=== PATIENT | female | born 1945 | race Two or more races ===

== ENCOUNTER → 2017-05-12 | Emergency (ER) | payer MEDICARE, OTHER ==
[~2017-05-12] MED LIST: ASPIRIN 81 MG CHEWABLE TABLETS ONE; ASPIRIN 81 MG CHEWABLE TABLETS PO ONE; ASPIRIN COATED 81 MG TABLET.EC PO SCH; ATORVASTATIN CA 80 MG TABLET (FP) PO SCH; CLOPIDOGREL BISULFATE 300 MG TABLET ONE; CLOPIDOGREL BISULFATE 300 MG TABLET PO ONE; CLOPIDOGREL BISULFATE 75 MG TABLET (FP) PO SCH; FUROSEMIDE 40 MG/4 ML INJECTABLE VIAL IVPUSH ONE; FUROSEMIDE 40 MG/4 ML INJECTABLE VIAL ONE; HEPARIN INFUSION - 25,000 UNITS/500 ML INFUS.BAG IVPB ONE; HEPARIN NA (PORCINE) 5,000 UNITS/ML 1ML VIAL IVPUSH ONE; HEPARIN NA (PORCINE) 5,000 UNITS/ML 1ML VIAL IVPUSH PRN; HEPARIN NA (PORCINE) 5,000 UNITS/ML 1ML VIAL ONE; HEPARIN SOD,PORK IN 0.45% NACL 25,000 UNIT/500 ML INFUS.BAG IVPB SCH; METOPROLOL TARTRATE 25 MG TABLET (FP) ONE; METOPROLOL TARTRATE 25 MG TABLET (FP) PO SCH; MORPHINE SULFATE 10 MG/1 ML *VIAL ONE; NITROGLYCERIN SUBLINGUAL 1/150 0.4 MG TAB SL ONE; SODIUM CHLORIDE 0.9% 500 ML INFUS.BAG IV ONE; VASOPRESSIN 20 UNITS/ML VIAL IV ONE; VASOPRESSIN 50 UNITS in SODIUM CHLORIDE 97.5 ML IVPB SCH; morphine CARPU-JECT 2 MG/1 ML DISP.SYRIN IVPUSH ONE
[2017-05-12 13:50] VITALS: BMI 23.6
--- NOTE | 2017-05-12 13:52 | PDOC ---
History of Present Illness - General History Source: Patient Exam Limitations: No Limitations - History of Present Illness Initial Comments: 05/12/17 14:00 The patient is a 71 year old female with past medical history of hypertension and diabetes who presents to the ED with complaints of left sided chest pain that began this morning at 4 am. The patient complains of a constant, sharp pain in her left chest that radiates up to her left jaw and left side of her head. The pain is not worsened by walking or deep inspiration. She denies any alleviating factors. She also reports associated nausea and vomiting that began at the onset of her pain this morning as well. The patient reports taking aspirin every other day but denies taking aspirin this morning. She denies any cardiac history or any catheterizations or stress tests in the past. She denies any associated shortness of breath, palpitations, or loss of consciousness. She denies any recent illness, fevers, or chills. PCP: Dr. Dominick Huddleston <Sepideh Dinh - Last Filed: 05/12/17 15:06> <Sabiha Barrientos - Last Filed: 05/12/17 17:23> - General Chief Complaint: Chest Pain Stated Complaint: CHEST PAIN Time Seen by Provider: 05/12/17 13:52 Past History <Sepideh Dinh - Last Filed: 05/12/17 15:06> - Past Medical History Diabetes: Yes HTN: Yes Hypercholesterolemia: Yes - Suicide/Smoking/Psychosocial Hx Smoking Status: No Smoking History: Never smoked Number of Cigarettes Smoked Daily: 0 <Sabiha Barrientos - Last Filed: 05/12/17 17:23> - Past Medical History Allergies/Adverse Reactions: Allergies Allergy/AdvReac Type Severity Reaction Status Date / Time No Known Allergies Allergy Verified 05/12/17 13:48 Home Medications: Ambulatory Orders Aspirin [ASA -] 81 mg PO DAILY 05/12/17 Dulaglutide [Trulicity] 1.5 mg SQ WEEKLY 05/12/17 Insulin (Levemir) [Levemir Vial] 50 unit SQ DAILY 05/12/17 Review of Systems - Review of Systems Able to Perform ROS?: Yes Comments:: 05/12/17 14:01 GENERAL/CONSTITUTIONAL: No fever or chills. No weakness. HEAD, EYES, EARS, NOSE AND THROAT: No change in vision. No ear pain or discharge. No sore throat. CARDIOVASCULAR: Present: chest pain No shortness of breath. RESPIRATORY: No cough, wheezing, or hemoptysis. GASTROINTESTINAL: Present: nausea, vomiting No diarrhea or constipation. GENITOURINARY: No dysuria, frequency, or change in urination. MUSCULOSKELETAL: No joint or muscle swelling or pain. No neck or back pain. SKIN: No rash NEUROLOGIC: No vertigo, loss of consciousness, or change in strength/sensation. ENDOCRINE: No increased thirst. No abnormal weight change. HEMATOLOGIC/LYMPHATIC: No anemia, easy bleeding, or history of blood clots. ALLERGIC/IMMUNOLOGIC: No hives or skin allergy. All Other Systems: Reviewed and Negative <Sepideh Dinh - Last Filed: 05/12/17 15:06> *Physical Exam - Vital Signs Last Vital Signs Temp Pulse Resp BP Pulse Ox 97.3 F L 96 H 17 110/59 95 05/12/17 13:48 05/12/17 13:48 05/12/17 13:48 05/12/17 13:48 05/12/17 13:48 - Physical Exam Comments: 05/12/17 14:02 GENERAL: Awake, alert, and fully oriented, in no acute distress HEAD: No signs of trauma EYES: PERRLA, EOMI, sclera anicteric, conjunctiva clear ENT: Auricles normal inspection, hearing grossly normal, nares patent, oropharynx clear without exudates. Moist mucosa NECK: Normal ROM, supple, no lymphadenopathy, JVD, or masses LUNGS: Breath sounds equal, clear to auscultation bilaterally. No wheezes, and no crackles HEART: Regular rate and rhythm, normal S1 and S2, no murmurs, rubs or gallops ABDOMEN: Soft, nontender, normoactive bowel sounds. No guarding, no rebound. No masses EXTREMITIES: Normal range of motion, no edema. No clubbing or cyanosis. No cords, erythema, or tenderness NEUROLOGICAL: Cranial nerves II through XII grossly intact. Normal speech, normal gait SKIN: Warm, Dry, normal turgor, no rashes or lesions noted. <Sepideh Dinh - Last Filed: 05/12/17 15:06> - Vital Signs Last Vital Signs Temp Pulse Resp BP Pulse Ox 97.3 F L 96 H 17 110/59 95 05/12/17 13:48 05/12/17 13:48 05/12/17 13:48 05/12/17 13:48 05/12/17 13:48 <Sabiha Barrientos - Last Filed: 05/12/17 17:23> ED Treatment Course - LABORATORY CBC & Chemistry Diagram: 05/12/17 13:50 05/12/17 13:50 <Sepideh Dinh - Last Filed: 05/12/17 15:06> - LABORATORY CBC & Chemistry Diagram: 05/12/17 13:50 05/12/17 13:50 <Sabiha Barrientos - Last Filed: 05/12/17 17:23> Medical Decision Making - Medical Decision Making 05/12/17 14:51 Phone call [address] to Dr. Pizarro, admitting physician for Dr. Huddleston. Awaiting call back 05/12/17 14:54 Phone call returned by Dr. Pizarro, case discussed. 05/12/17 15:06 Phone call placed to Dr. Dawson via answering service. Call was returned promptly and case was discussed. <Sepideh Dinh - Last Filed: 05/12/17 15:06> - Critical Care Time Total Critical Care Time (minutes): 30 Critical Care Statement: The care of this patient involved high complexity decision making to prevent further life threatening deterioration of the patient 's condition and/or to evaluate & treat vital organ system(s) failure or risk of failure. - Medical Decision Making 05/12/17 14:24 Pt presents to the ED complaining of chest pain that began at 4 am, accompanied by nausea and vomiting. Initial EKG had an ST depression in V2, with a tall R wave. No changes in V1, but concern remained for posterior stemi, so posterior EKG was obtained. THe posterior eKG shows no JOHANNE, and on the repeat EKG, the depression in v2 seems resolved. Concern for ischemia, although patient does not appear to have STEMI at this time. Case discussed with Dr. De Leon, who has examined the EKG and suggests nitrogylcerin. Will treat with gentle IV hydration ( SBP is 100) and nitro, as well as ASA. Dr. De Leon will see the patient. Will admit to medicine for ACS. 05/12/17 17:13 Pt made troponins of 20. Given nitroglycerin x [address] De Leon. SBP then decreased into the 80's. Given NS 1 L IV with initial improvement, but then patient began to be hypoxic and SBP decreased again into the 70s. Patient started on vasopressin IV with improvement in her blood pressure. Transfer team here to take the patient to [facility]. 05/12/17 17:19 <Sabiha Barrientos - Last Filed: 05/12/17 17:23> *DC/Admit/Observation/Transfer - Attestations Scribe Attestion: 05/12/17 14:02 Documentation prepared by Sepideh Dinh, acting as resident medical officer for Sabiha Barrienots MD. <Sepideh Dinh - Last Filed: 05/12/17 15:06> - Discharge Dispostion Admit: Yes - Transfer to Acute Care Facility Receiving Facility: [facility] Accepting Physician:: anoop <Sabiha Barrientos - Last Filed: 05/12/17 17:23> Diagnosis at time of Disposition: NSTEMI (non-ST elevated myocardial infarction) - Discharge Dispostion Disposition: TRANSFER ACUTE CARE/OTHER HOSP Condition at time of disposition: Stable
[2017-05-12 14:06] LABS: BASO % 0.5 % (0-2.0); EOS % 0.1 % (0-4.5); HEMATOCRIT 41.8 % (32.4-45.2); HEMOGLOBIN 13.9 GM/dL (10.7-15.3); MCH 29.7 pg (25.7-33.7); MCHC 33.3 g/dl (32.0-36.0); MEAN CELL VOLUME 89.2 fl (80-96); MEAN PLT VOLUME 9.2 fl (7.5-11.1); MONO % 3.1 % (3.8-10.2); NEUT % 87.3 % (42.8-82.8); PLATELET COUNT 164 K/MM3 (134-434); RBC 4.68 M/mm3 (3.60-5.2); RDW 13.2 % (11.6-15.6); WHITE BLOOD COUNT 10.6 K/mm3 (4.0-10.0)
--- NOTE | 2017-05-12 14:29 | CON.CARD ---
Consult Consult Specialty:: cardio Referred by:: ER (for guillejose de jesus) - History of Present Illness Chief Complaint: cp History of Present Illness: 71 yo female here with CP. started at 4-4:30 am, shortly after she had woken and finished using the bathroom. was severe shortly after onset of pain. remained 10 out of 10 intensity--came to ER. takes ASA 81 qod at home (for prior "minor stroke"). given 162mg aspirin in ER. pain subsided to 5 of 10 intensity where it remains. located in R pectoral region. also assctd R neck/jaw pain. no sob, diaph, LH. *NEVER HAD THIS PAIN BEFORE. PMH: HTN DM HPL TIA no cigs FH: son of fatal [place] in his 40s - Smoking History Smoking history: Never smoked Aproximately how many cigarettes per day: 0 Home Medications - Allergies Allergies/Adverse Reactions: Allergies Allergy/AdvReac Type Severity Reaction Status Date / Time No Known Allergies Allergy Verified 05/12/17 13:48 - Home Medications Home Medications: Ambulatory Orders Aspirin [ASA -] 81 mg PO DAILY 05/12/17 Dulaglutide [Trulicity] 1.5 mg SQ WEEKLY 05/12/17 Insulin (Levemir) [Levemir Vial] 50 unit SQ DAILY 05/12/17 Review of Systems - Review of Systems Constitutional: denies: Chills, Fever Eyes: denies: Eye Pain HENT: denies: Nasal Congestion Neck: denies: Stiffness Cardiovascular: denies: Palpitations Respiratory: denies: Orthopnea, PND Gastrointestinal: denies: Diarrhea, Rectal Bleeding Genitourinary: denies: Burning, Hematuria Musculoskeletal: denies: Muscle Pain Integumentary: denies: Rash Neurological: denies: Numbness, Seizure, Syncope Endocrine: denies: Excessive Sweating Hematology/Lymphatic: denies: Excessive Bleeding Vital Signs: Vital Signs Temperature 97.3 F L 05/12/17 13:48 Pulse Rate 96 H 05/12/17 13:48 Respiratory Rate 17 05/12/17 13:48 Blood Pressure 110/59 05/12/17 13:48 O2 Sat by Pulse Oximetry (%) 95 05/12/17 13:48 Constitutional: Yes: Well Nourished, No Distress Eyes: No: Sclera Icterus HENT: No: Nasal Congestion Neck: No: Decreased ROM Respiratory: Yes: CTA Bilaterally. No: Accessory Muscle Use Gastrointestinal: Yes: Normal Bowel Sounds. No: Distention, Hepatomegaly, Palpable Mass, Tenderness Cardiovascular: Yes: Regular Rate and Rhythm JVD: No Carotid Bruit: No PMI: Non-Displaced Heart Sounds: Yes: S1, S2. No: Gallop Murmur: No: Systolic Murmur, Diastolic Murmur Musculoskeletal: Yes: Other (No kyphosis) Extremities: No: Cool, Cyanosis Edema: No Peripheral Pulses: 2+ Left Carotid, 2+ Right Carotid, 2+ Left Doralis Pedis, 2+ Right Dorsalis Pedis Integumentary: No: Jaundice Neurological: Yes: Alert, Oriented (x3) Psychiatric: No: Agitated - Other Data Labs, Other Data: CBC, BMP 05/12/17 13:50 Laboratory Tests 05/12/17 13:50 WBC 10.6 H D Hgb 13.9 D Plt Count 164 Assessment/Plan ECG 13:39: NSR, left axis, ischemic ST depressions (1.5mm) in anterior leads and I/avL (nonspecific in II). early R/S transition but not involving V1. (ST changes new vs prior 07/2011) ECG 14:04 posterior lead placement: no ST segment elevation acute coronary syndrome: -anginal CP ongoing x many hours today -ischemic ECG (ST depressions) -1st cardiac enzymes in lab--phone call to ER reporting tropinin >20 -borderline SBP 100--rec SL nitro trial x1 now, with IVF for bp support (no s/ sx of chf) -given 162mg ASA already in ER, repeat 162mg now -start UFH per protocol (with bolus) -start plavix load 600mg x 1, then 75 daily -given no signs of chf, and pt tachycardic, will start low dose metoprolol ( tartrate, 12.5mg bid for now) -start high dose atorvastatin (80mg) -defer cath today given NSTEMI, unless cannot abort CP with med mgmt, or signs of acute severe CHF, electrical/hemodyn instability ensue -explained to pt and dtr that she will eventually need cath to define her anatomy, and that if we cannot control her CP medically, we may need to do this later today. they verbalized understanding. -admit to ICU hypotension: -sbp 100, down to 95 after SL nitro -no signs cardiogenic shock, distally feels well-perfused -f/u CXR -doubt RV infarct given no inferior ST elevations. -if BP drops further after 2nd NTG, will need aggressive fluid boluses -cont IVF infusion for now, as doing HTN: -on losartan at home -hold meds here given low-end BP and need for nitrates for anginal CP DM: -on insulin at home. -per pmd disc'd above plan with ER (dr. velasquez) estimated time in pt exam, review of data, and formulation of managment plan for potentially life-threatening problem = 35 min
[2017-05-12 14:30] LABS: ALBUMIN 3.4 g/dl (3.4-5.0); ANION GAP 15 (8-16); BILIRUBIN,TOTAL 0.4 mg/dL (0.2-1.0); BLOOD UREA NITROGEN 34 mg/dL (7-18); CALCIUM 9.2 mg/dL (8.5-10.1); CHLORIDE 102 mmol/L (98-107); CO2 22 mmol/L (21-32); CREATININE 2.4 mg/dL (0.55-1.02); GLUCOSE,RANDOM 279 mg/dL (74-106); SGOT/AST 138 U/L (15-37); SGPT/ALT 42 U/L (12-78); SODIUM 139 mmol/L (136-145); TOT PROT 8.6 g/dl (6.4-8.2)
[2017-05-12 14:44] LABS: ALK PHOS 103 U/L (45-117)
[2017-05-12 16:34] LABS: INR 1.08 (0.82-1.09); PROTHROMBIN TIME (PATIENT) 12.2 SEC (9.98-11.88)
[2017-05-12 16:37] LABS: ACTIVATED PTT 30.3 SECONDS (26.9-34.4)
[2017-05-12 17:08] VITALS: BP 113/75; PULSE 111
[2017-05-12 17:11] VITALS: TEMP 97.7
--- NOTE | 2017-05-13 14:24 | EKG ---
Test Reason : Blood Pressure : / mmHG Vent. Rate : 104 BPM Atrial Rate : 104 BPM P-R Int : 162 ms QRS Dur : 100 ms QT Int : 384 ms P-R-T Axes : 047 -44 106 degrees QTc Int : 504 ms SINUS TACHYCARDIA LEFT AXIS DEVIATION ST depression, consider subendocardial injury LEFT VENTRICULAR HYPERTROPHY ABNORMAL ECG Confirmed by MD LINDY, ESTEPHANIE ([id number]) on 05/13/2017 2:24:14 PM Referred By: Confirmed By:ESTEPHANIE ISRAEL MD
--- NOTE | 2017-05-14 10:49 | EKG ---
Test Reason : Blood Pressure : / mmHG Vent. Rate : 099 BPM Atrial Rate : 099 BPM P-R Int : 166 ms QRS Dur : 102 ms QT Int : 406 ms P-R-T Axes : 050 -43 137 degrees QTc Int : 521 ms NORMAL SINUS RHYTHM LEFT AXIS DEVIATION MARKED ST ABNORMALITY, POSSIBLE ANTEROLATERAL SUBENDOCARDIAL INJURY PROLONGED QT ABNORMAL ECG WHEN COMPARED WITH ECG OF 27-JUL-2011 18:08, ST NOW DEPRESSED IN ANTEROLATERAL LEADS T WAVE INVERSION NOW EVIDENT IN LATERAL LEADS CLINICAL CORRELATION IS RECOMMENDED Confirmed by LORENZA NICHOLS, BOBBI ([id number]) on 05/14/2017 10:48:47 AM Referred By: Confirmed By:BOBBI BRITT MD
--- NOTE | 2017-05-14 10:49 | EKG ---
Test Reason : Blood Pressure : / mmHG Vent. Rate : 088 BPM Atrial Rate : 088 BPM P-R Int : 124 ms QRS Dur : 096 ms QT Int : 412 ms P-R-T Axes : 009 -41 087 degrees QTc Int : 498 ms NORMAL SINUS RHYTHM LEFT AXIS DEVIATION LEFT VENTRICULAR HYPERTROPHY WITH REPOLARIZATION ABNORMALITY PROLONGED QT ABNORMAL ECG WHEN COMPARED WITH ECG OF 12-MAY-2017 13:39, Confirmed by BOBBI BRITT MD ([id number]) on 05/14/2017 10:48:24 AM Referred By: Confirmed By:BOBBI BRITT MD
== END | disposition short-term general hospital (02) ==
LOC: JER 13:32
PROC: 3E0337Z Introduction of Electrolytic and Water Balance Substance into Peripheral Vein, Percutaneous Approach (ICD-10-PCS; principal; 2017-05-12)
PROC: 3E033GC Introduction of Other Therapeutic Substance into Peripheral Vein, Percutaneous Approach (ICD-10-PCS; 2017-05-12)
DX: I21.4 Non-ST elevation (NSTEMI) myocardial infarction (principal); I10 Essential (primary) hypertension; E11.9 Type 2 diabetes mellitus without complications
CPT/HCPCS: 36415; 71045-TC-FY; 80053; 82550; 82553; 84484; 85025; 85610; 85730; 93005; 93010; 99285-25; J1644